=== PATIENT | female | born 1935 | race Caucasian/White ===

== ENCOUNTER 2016-12-19 07:08 | Emergency (ER) | payer MEDICARE, OTHER ==
[2016-12-19 07:49] LABS: ABSOLUTE BASOPHILS # (AUTO) 0.1 10^3/uL (0.0-0.2); ABSOLUTE EOSINOPHILS # (AUTO) 0.1 10^3/uL (0.0-0.6); ABSOLUTE LYMPHOCYTES (AUTO) 1.6 10^3/uL (0.5-4.7); ABSOLUTE MONOCYTES (AUTO) 0.8 10^3/uL (0.1-1.4); ABSOLUTE NEUT (AUTO) 6.5 10^3/uL (1.7-8.2); BASOPHILS % (AUTO) 0.9 % (0-2); EOSINOPHILS % (AUTO) 0.7 % (0-6); HEMATOCRIT 33.1 % (36.0-47.0); HEMOGLOBIN 11.5 g/dL (12.0-15.5); HGB HCT DIFFERENCE 1.4; LYMPHOCYTES % (AUTO) 17.2 % (13-45); MEAN CORPUSCULAR HEMOGLOBIN 34.4 pg (27.0-33.4); MEAN CORPUSCULAR HGB CONC 34.7 g/dL (32.0-36.0); MEAN CORPUSCULAR VOLUME 99 fl (80-97); MONOCYTES % (AUTO) 8.6 % (3-13); RED BLOOD COUNT 3.34 10^6/uL (3.72-5.28); RED CELL DISTRIBUTION WIDTH 12.7 % (11.5-14.0); SEGMENTED NEUTROPHILS % (AUTO) 72.6 % (42-78)
--- NOTE | 2016-12-19 07:54 | ER Document Report ---
ED ENT - General Chief Complaint: Difficulty Swallowing Stated Complaint: MOUTH PAIN Mode of Arrival: Medic Information source: Patient Notes: Patient states she woke up this morning noticing that her tongue was bruised and swollen. Patient feels like her throat swelling. Patient does take Coumadin and was to yesterday to have her INR rechecked. Patient denies any other abnormal bleeding or bruising. TRAVEL OUTSIDE OF THE [place] IN LAST 30 DAYS: No - HPI Patient complains to provider of: Other - Tongue bruising Onset: This morning Onset/Duration: Gradual Quality of pain: Achy Pain Level: 3 Context: Travel Location of pain: Other - Tongue Associated symptoms: Neck pain Similar symptoms previously: No Recently seen / treated by doctor: No - Related Data Allergies/Adverse Reactions: Penicillins Allergy (Verified 12/19/16 07:47) Past Medical History - General Information source: Patient - Social History Smoking Status: Never Smoker Frequency of alcohol use: None Drug Abuse: None Lives with: Spouse/Significant other Family History: Reviewed & Not Pertinent Patient has suicidal ideation: No Patient has homicidal ideation: No - Medical History Medical History: Negative Renal/ Medical History: Denies: Hx Peritoneal Dialysis Past Surgical History: Reports: Hx Cardiac Surgery - mitral valve Review of Systems - Review of Systems Constitutional: No symptoms reported. denies: Fever EENT: Mouth pain, Mouth swelling Cardiovascular: No symptoms reported. denies: Lightheaded Respiratory: No symptoms reported. denies: Cough, Short of breath Gastrointestinal: No symptoms reported. denies: Nausea, Vomiting Genitourinary: No symptoms reported Female Genitourinary: No symptoms reported Musculoskeletal: No symptoms reported Skin: Other - Ecchymosis to tongue Hematologic/Lymphatic: Swollen glands - Left side of neck. denies: Easy bleeding, Easy bruising Neurological/Psychological: No symptoms reported Physical Exam - Vital signs Vitals: Temp Pulse Resp BP Pulse Ox 97.8 F 68 16 107/81 100 12/19/16 07:10 12/19/16 07:10 12/19/16 07:10 12/19/16 07:10 12/19/16 07:10 - General General appearance: Alert, Anxious In distress: None - HEENT Head: Normocephalic, Atraumatic Eyes: Normal Conjunctiva: Normal Nasal: Normal Mouth/Lips: Other - Mild tongue swelling with ecchymosis. No: Angioedema Mucous membranes: Other - Sublingual ecchymosis, no induration Pharynx: Normal Neck: Lymphadenopathy - Tender cervical node left upper anterior chain - Respiratory Respiratory status: No respiratory distress Chest status: Nontender Breath sounds: Normal. No: Rales, Rhonchi, Stridor, Wheezing Chest palpation: Normal - Cardiovascular Rhythm: Regular Heart sounds: S1 appreciated, S2 appreciated Murmur: No - Abdominal Inspection: Normal - Back Back: Normal, Nontender. No: CVA tenderness, Vertebra tenderness - Extremities General upper extremity: Normal inspection, Normal strength General lower extremity: Normal inspection, Normal strength - Neurological Neuro grossly intact: Yes Cognition: Normal Glady Coma Scale Eye Opening: Spontaneous Glady Coma Scale Verbal: Oriented Glady Coma Scale Motor: Obeys Commands Glady Coma Scale Total: 15 - Psychological Associated symptoms: Anxious - Skin Skin Temperature: Warm Skin Moisture: Dry Skin Color: Ecchymosis - Tongue, sublingual area Course - Re-evaluation Re-evalutation: 12/19/16 07:[address] ruvalcaba regarding patient's history, presentation and diagnostic evaluation. 12/19/16 08:30 Patient without any increased swelling to tongue. 12/19/16 09:[address] Echavarria regarding patient CT report. No abnormal findings noted on CT, no concern for any airway compromise. 12/19/16 09:[address] report as well as diagnostic test results with Dr. Ruvalcaba. Recommends outpatient follow-up with her primary doctor who manages her Coumadin to discuss adjusting her dose as she is currently subtherapeutic. Patient without any objective airway compromise. Respirations even unlabored. Patient has been able to sustain an oxygen saturation 99-100% while here in the emergency department. 12/19/16 Discussed planning care with patient. Reexamine patient's mouth. Patient states that her lower plate did fall out of her mouth last night during her sleep. Spouse all areas of maceration on the left underside of her tongue. 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 Posts appear sharp and metallic incapable of causing injury noted on her tongue. - Vital Signs Vital signs: Temp Pulse Resp BP Pulse Ox 97.8 F 68 11 L 128/65 H 99 12/19/16 07:10 12/19/16 07:10 12/19/16 08:01 12/19/16 08:01 12/19/16 08:01 - Laboratory Result Diagrams: 12/19/16 07:35 12/19/16 07:35 Laboratory results interpreted by me: 12/19/16 12/19/16 12/19/16 07:35 07:35 08:22 RBC 3.34 L Hgb 11.5 L Hct 33.1 L MCV 99 H MCH 34.4 H PT 21.3 H AST 59 H 12/19/16 09:33 Labs- Entire Visit 12/19/16 12/19/16 12/19/16 07:35 07:35 07:35 WBC 9.0 RBC 3.34 L Hgb 11.5 L Hct 33.1 L MCV 99 H MCH 34.4 H MCHC 34.7 RDW 12.7 Plt Count 231 Seg Neutrophils % 72.6 Lymphocytes % 17.2 Monocytes % 8.6 Eosinophils % 0.7 Basophils % 0.9 Absolute Neutrophils 6.5 Absolute Lymphocytes 1.6 Absolute Monocytes 0.8 Absolute Eosinophils 0.1 Absolute Basophils 0.1 PT Cancelled INR Cancelled APTT Cancelled Sodium 142.1 Potassium 4.3 Chloride 103 Carbon Dioxide 22 Anion Gap 17 BUN 12 Creatinine 0.58 Est GFR ( Amer) > 60 Est GFR (Non-Af Amer) > 60 Glucose 93 Calcium 9.5 Total Bilirubin 0.2 Direct Bilirubin 0.2 Indirect Bilirubin Not Reportable Neonat Total Bilirubin Not Reportable AST 59 H ALT 26 Alkaline Phosphatase 75 Total Protein 7.6 Albumin 4.5 12/19/16 08:22 WBC RBC Hgb Hct MCV MCH MCHC RDW Plt Count Seg Neutrophils % Lymphocytes % Monocytes % Eosinophils % Basophils % Absolute Neutrophils Absolute Lymphocytes Absolute Monocytes Absolute Eosinophils Absolute Basophils PT 21.3 H INR 1.77 APTT 33.7 Sodium Potassium Chloride Carbon Dioxide Anion Gap BUN Creatinine Est GFR ( Amer) Est GFR (Non-Af Amer) Glucose Calcium Total Bilirubin Direct Bilirubin Indirect Bilirubin Neonat Total Bilirubin AST ALT Alkaline Phosphatase Total Protein Albumin 12/19/16 09:38 - Diagnostic Test Radiology reviewed: Reports reviewed Discharge - Discharge Clinical Impression: tongue ecchymosis, Subtherapeutic international normalized ratio (INR) Condition: Stable Disposition: HOME, SELF-CARE Additional Instructions: Return immediately for any new or worsening symptoms Your INR was subtherapeutic today. Followup with your primary care provider, call today to discuss your INR level and what they would like you to do with your Coumadin dosage Referrals: [facility] [Provider Group] - Follow up as needed
[2016-12-19 08:23] LABS: ALANINE AMINOTRANSFERASE 26 U/L (9-52); ALBUMIN 4.5 g/dL (3.5-5.0); ALKALINE PHOSPHATASE 75 U/L (38-126); ANION GAP 17 (5-19); ASPARTATE AMINO TRANSFERASE 59 U/L (14-36); BILIRUBIN,DIRECT 0.2 mg/dL (0.0-0.4); BILIRUBIN,TOTAL 0.2 mg/dL (0.2-1.3); BLOOD UREA NITROGEN 12 mg/dL (7-20); CALCIUM 9.5 mg/dL (8.4-10.2); CARBON DIOXIDE 22 mmol/L (22-30); CHLORIDE 103 mmol/L (98-107); CREATININE RESULT 0.58 mg/dL (0.52-1.25); GLUCOSE 93 mg/dL (75-110); POTASSIUM 4.3 mmol/L (3.6-5.0); SODIUM 142.1 mmol/L (137-145); TOTAL PROTEIN 7.6 g/dL (6.3-8.2)
[2016-12-19 08:46] LABS: PROTHROMBIN TIME 21.3 SEC (11.4-15.4)
[2016-12-19 08:47] LABS: PARTIAL THROMBOPLASTIN TIME 33.7 SEC (23.5-35.8)
[2016-12-19 10:21] VITALS: BP 130/54
== END 2016-12-19 10:21 | disposition home or self-care (01) ==
LOC: ER 07:08
DX: R58 Hemorrhage, not elsewhere classified (principal); R06.02 Shortness of breath; K08.89 Other specified disorders of teeth and supporting structures; Z79.01 Long term (current) use of anticoagulants
CPT/HCPCS: 36415; 70491; 80053; 85025; 85610; 85730; 99284